=== PATIENT | female | born 1935 | race Caucasian/White ===

== ENCOUNTER 2024-06-01 12:18 | Emergency (ER) | payer MEDICARE, BC, SELFPAY ==
[2024-06-01 12:25] VITALS: BP 136/67
[2024-06-01] MEDS: TYLENOL 1000 MG PO (13:24)
[2024-06-01 13:27] VITALS: BMI 31.3
[2024-06-01 13:33] LABS: % Basophils 0.3 % (0-2); % Eosinophils 0.6 % (0-6); % Immature Granulocytes 0.3 % (0-0.5); % Lymphocytes 18.6 % (20.5-51.1); % Monocytes 11.5 % (1.7-9.3); % Neutrophils 68.7 % (42.2-75.2); Absolute Lymphocytes 1.3 10^3/uL (1.2-3.4); Absolute Monocytes 0.8 10^3/uL (0.1-0.6); Absolute Neutrophils 4.9 10^3/uL (1.4-6.5); Hemoglobin 12.3 g/dL (12.0-16.0); Mean Corp Hgb Conc. 35.1 g/dL (33.0-37.0); Mean Corpuscular Hgb 29.8 pg (27.0-31.0); Mean Corpuscular Volume 84.7 fL (81.0-99.0); Nucleated Red Blood Cells % 0 %; Platelet Count 206 10^3/uL (130-400); Red Blood Cell Count 4.13 10^6/uL (4.20-5.40); Red Cell Dist. Width 13.8 % (11.5-14.5); White Blood Cell Count 7.1 10^3/uL (4.8-10.8)
--- NOTE | 2024-06-01 13:37 | ED.GENMED ---
History of Present Illness
General
Chief Complaint: Fall
Source: patient and family
Time Seen by Provider: 06/01/24 12:49
History of Present Illness
History of Present Illness:
88-year-old female with past medical history of hypertension presenting to the emergency department for evaluation after she had an accidental fall yesterday around 2 PM stating she put her walker onto the carpet and stepped backwards which caused
her to fall into the TV stand injuring her left flank/lower back, right knee and also noting bruise to the left mid humerus patient reports that she has been able to walk since but has had pain to her right knee and notes that the knee will
occasionally give out. Patient denies any head injury, loss consciousness, vomiting, visual changes. She does not use any anticoagulant or antiplatelet medications. Did take some Tylenol due to the generalized soreness. Patient's main concern is
chemosis within the left back and flank area.
Past History
Past History
ED Past Medical History: HTN
ED Past Surgical History: Cholecystectomy
Social History
Tobacco: Non-smoker
Alcohol: None
Drug: None
Personal:
Living: with family
Family History
Family History: Other (No significant)
Review of Systems
Review of Systems
All Other Systems: ROS reviewed and negative except as documented in HPI and ROS
Phy Exam
Physical Exam
Physical Exam:
GENERAL: Alert , in no apparent distress
HEAD: NCAT
EYE: Clear conjunctiva, no periorbital ecchymosis
NECK: Supple, no midline tenderness
ENT: o/p clr, mmm.
CARDIAC: Regular rate and rhythm .
LUNGS: Clear breath sounds bilaterally, no acute respiratory distress, no wheezes/rales/rhonchi
ABDOMEN: Soft, without focal tenderness, no r/g, small area of ecchymosis to the left CVA
BACK: 2 larger areas of ecchymosis including the left parathoracic and left sacral region. The parathoracic region wraps around into the left CVA. Mild tenderness overlying this area
NEUROLOGICAL: Alert and oriented
SKIN: Warm and dry, skin intact. no abrasions/lacerations. contusion to left mid humerus
MUSCULOSKELETAL: No edema, well perfused.
PSYCH: Normal and appropriate interaction.
Scores
Heart Failure Risk
Heart Failure Risk Score: Not Applicable
Heart Score for Chest Pain Patients
STEMI patient?: Not applicable
Withdrawal Assessment of Alcohol
Withdrawal Assessment Completed?: Not applicable
Course
Orders/Labs/Results
Orders:
Orders
06/01/24 13:05
CT Chest/abd/pel W Iv Cont Urgent
Reason For Exam: fall, left sided ecchymosis in flank
06/01/24 13:13
Basic Metabolic Panel Urgent
Complete Blood Count/With Diff Urgent
06/01/24 13:23
Acetaminophen [Tylenol] 1,000 mg .ROUTE .STK-MED ONE
Acetaminophen [Tylenol] 1,000 mg PO NOW STA
06/01/24 13:43
CR Knee- Right 4 Or More View* Urgent
Comment:
Reason For Exam: fall, pain
Abnormal Lab Results
06/01/24
13:13
RBC 4.13 L 10^6/uL
(4.20-5.40)
Hct 35.0 L %
(37.0-47.0)
Absolute Monos (auto) 0.8 H 10^3/uL
(0.1-0.6)
Lymphocytes % 18.6 L %
(20.5-51.1)
Monocytes % 11.5 H %
(1.7-9.3)
Glucose 124 H mg/dl
(70-99)
06/01/24 13:13
06/01/24 13:13
Vital Signs
Initial and Last Documented VS:
Initial Vital Signs
Temp Pulse Resp BP Pulse Ox
98.3 F 63 16 136/67 98
06/01/24 12:25 06/01/24 12:25 06/01/24 12:25 06/01/24 12:25 06/01/24 12:25
Last Documented Vital Signs
Temp Pulse Resp BP Pulse Ox
98.1 F 78 18 126/74 97
06/01/24 15:51 06/01/24 15:51 06/01/24 15:51 06/01/24 15:51 06/01/24 15:51
MDM/Problems Addressed
Differential Diagnosis Includes:
accidental trip and fall, contusion, retroperitoneal hematoma, no concern for fracture
MDM/Problems Addressed:
88-year-old female presenting to the emergency department for evaluation after an accidental trip and fall yesterday. Patient's main area of concern is the bruising/contusion on the left part of her back/flank area. Also noting some mild right
knee and left humeral pain. Patient denies anticoagulants. Hemodynamically stable and in no acute distress. Based off patient's age combined with the physical exam findings will obtain CT scan of the chest abdomen and pelvis. X-ray of the right
knee. Tylenol ordered for pain.
*Radiology
Radiology exam reviewed: preliminary read by ED provider (degenerative changes of right knee. no fracture) and radiology read reviewed
*Pulse Oximetry
Patient hypoxic: no
*Critical Care Note
Total Time (30-74mins, 75-104mins- exclusive of procedures): Not Applicable
Patient Management
Escalation/DeEscalation of care consider admission/obs:
Patient CT scan is noted for mild contusions but no acute emergent pathologies within the chest abdomen or pelvis. Patient advised she can use Tylenol or NSAIDs as needed for pain. Keep ice over the areas that are more sore. Follow-up with
primary provider as needed.
ED Attending Note
-
Portions of this chart may have been created with voice recognition software.� Occasional wrong word or��sound alike� substitutions may have occurred due to the inherent limitations of voice recognition software.
Discharge Plan
Departure
Patient Disposition: Home (Routine Discharge)
Date of Disposition: 06/01/24
Time of Disposition: 15:47
Patient with high blood pressure during this ER visit?: No
Discharge Problem:
Accidental fall, Back contusion, Knee pain, right
Instructions: Contusion
Prescriptions:
No Action
ciprofloxacin HCl 500 MG tablet
500 mg PO Q12 Qty: 19 0RF
phenazopyridine 100 MG tablet
100 mg PO Q8 PRN (Reason: bladder pressure) Qty: 20 0RF
Referrals:
Cameron Avila MD [Family Provider] -
Interventions
Interventions:
*Risk Screen - Suicide Last Done: 06/01/24 12:25
*General Assessment Last Done: 06/01/24 12:25
*Neglect/Abuse Screening Last Done: 06/01/24 12:25
ED- Fall Risk Assessment Last Done: 06/01/24 15:52
*ED COVID-19 Vaccine History Last Done: 06/01/24 15:52
*Nursing Disposition Last Done: 06/01/24 15:52
ED-Musculoskeletal Assessment Last Done: 06/01/24 15:52
ED- Neurological Assessment Last Done: 06/01/24 15:52
ED-Skin Assessment Last Done: 06/01/24 15:53
Discharge Date and Time
Discharge Date/Time: 06/01/24 15:53
Print Language: BERMUDIAN
[2024-06-01 13:47] LABS: Blood Urea Nitrogen 15 mg/dl (7-17); Calcium 9.6 mg/dl (8.4-10.2); Carbon Dioxide 26 mmol/L (22-30); Chloride 104 mmol/L (98-107); Estimated Creatinine Clearance 50 ml/min; Glucose 124 mg/dl (70-99); Potassium 4.1 mmol/L (3.5-5.1); Sodium 139 mmol/L (135-145); eGFR > 60.00
[2024-06-01 15:51] VITALS: BP 126/74
== END 2024-06-01 15:53 | disposition home or self-care (01) ==
LOC: EMR 12:18
PROVIDERS: Physician Assistant Medical; EMERGENCY PHYSICIAN Emergency Medicine; FAMILY PHYSICIAN Family Medicine
DX: S20.221A Contusion of right back wall of thorax, initial encounter (principal); S30.1XXA Contusion of abdominal wall, initial encounter; S40.022A Contusion of left upper arm, initial encounter; M25.561 Pain in right knee; W01.198A Fall on same level from slipping, tripping and stumbling with subsequent striking against other object, initial encounter; I10 Essential (primary) hypertension; Z90.49 Acquired absence of other specified parts of digestive tract
CPT/HCPCS: 99285; 71260; 73564; 74177; 80048; 85025; Q9967

== ENCOUNTER 2024-06-22 13:54 | Emergency (ER) | payer MEDICARE, BC, SELFPAY ==
[2024-06-22 13:59] VITALS: BP 201/94
--- NOTE | 2024-06-22 14:22 | ED.CVA ---
History of Present Illness
General
Chief Complaint: CVA/TIA Symptoms
Source: patient and family
Time Seen by Provider: 06/22/24 14:03
Onset of Stroke Symptoms
Onset of symptoms known: No
Time pt last seen normal is known: No
History of Present Illness
History of Present Illness:
88yoF with a history of hypertension presenting with her daughter for evaluation of numbness. Patient reports intermittent paresthesias over the past several weeks. The paresthesias occur at different locations. Sometimes they occur at the right
index and middle fingers. She has also had episodes of paresthesias to her right lateral tongue and right upper lip. The symptoms are always transient. She was reaching for the remote this morning around 11 AM when she noticed that her right
index and middle fingers felt numb. She shook out her hand and the numbness resolved. Patient is currently asymptomatic. She has also been experiencing intermittent dizziness and tinnitus since October of this year. She describes the dizziness as
lightheadedness. She denies any vertiginous symptoms. She has been seen by ENT and her PCP for these symptoms. Her PCP has been adjusting her blood pressure medications recently. No headache, visual changes, weakness, chest pain, palpitations.
Past History
Past History
ED Past Medical History: HTN
ED Past Surgical History: Cholecystectomy
Social History
Tobacco: Non-smoker
Alcohol: None
Drug: None
Personal:
Living: with family
Family History
Family History: Other (No significant)
Phy Exam
General Physical Exam
General Presentation: well appearing and no apparent distress
General age: appears stated age
General Skin: warm and dry
General Habitus: normal
General Mental: alert
Cardiovascular Exam
Cardiovascular Exam: regular rate/rhythm
Pulmonary Exam
Pulmonary Exam: lungs clear, no respiratory distress, no crackles and no wheezing
Neurological Exam
Neurological Exam: alert, CN II-XII intact, no motor deficits, no sensory deficits and other (CN 2-12 intact. PERRL. EOMs intact. Negative drift x4. Sensation intact in all extremities. Normal finger to nose and heel to polanco bilaterally. )
Callie Coma Scale
Eye Opening: Spontaneous
Verbal Response: Oriented
Motor Response: Obeys Commands
GCS Total Score: 15
Skin Exam
Skin Exam: normal color and warm/dry
Psychiatric Exam
Psychiatric Exam: normal mood/affect
Scores
NIH Stroke Score
Level of Consciousness: 0 - Alert
LOC Questions: 0-Answers both correctly
LOC Commands: 0-Performs both correctly
Best Horizontal Gaze: 0-Normal
Visual Pride: 0=Normal, no visual loss
Facial Palsy: 0=Normal, symmetrical
Motor - Right Arm: 0=No drift 10 seconds
Motor - Left Arm: 0=No drift 10 seconds
Motor - Right Le-No drift 5 seconds
Motor - Left Le-No drift 5 seconds
Limb Ataxia: 0-Absent
Sensation: 0-Normal
Best Language: 0-No aphasia
Dysarthria: 0-Normal
Extinction and Inattention: 0-No abnormality
Total Score:: 0
Course
Orders/Labs/Results
Orders:
Orders
06/22/24 14:[address] [CT Head W/o Iv Contrast] Urgent
Comment:
Reason For Exam: unilateral numbness
06/22/24 14:21
Electrocardiogram (*1) Urgent
Reason for Study: Vertigo / Dizzy
Cardiac Monitoring- Treatment ONCE
EKG- Treatment ONCE
06/22/24 14:36
Complete Blood Count/With Diff Urgent
Comprehensive Metabolic Panel Urgent
Abnormal Lab Results
06/22/24
14:36
WBC 4.1 L 10^3/uL
(4.8-10.8)
RBC 4.15 L 10^6/uL
(4.20-5.40)
Hct 36.8 L %
(37.0-47.0)
Absolute Lymphs (auto) 1.1 L 10^3/uL
(1.2-3.4)
Monocytes % 9.8 H %
(1.7-9.3)
Glucose 105 H mg/dl
(70-99)
06/22/24 14:36
06/22/24 14:36
Vital Signs
Initial and Last Documented VS:
Initial Vital Signs
Temp Pulse Resp BP Pulse Ox
97.7 F 58 16 201/94 98
06/22/24 13:59 06/22/24 13:59 06/22/24 13:59 06/22/24 13:59 06/22/24 13:59
Last Documented Vital Signs
Temp Pulse Resp BP Pulse Ox
97.7 F 58 12 186/70 98
06/22/24 13:59 06/22/24 16:30 06/22/24 16:30 06/22/24 16:18 06/22/24 16:30
MDM/Problems Addressed
Differential Diagnosis Includes:
88yoF here with intermittent numbness x several weeks to R index/middle fingers and tongue. Last episode 11am this morning. Currently asymptomatic. She is hypertensive on arrival with otherwise normal vital signs. She is well appearing in no
distress. No sensory deficits on exam or other neuro deficits noted. Differential diagnosis includes but is not limited to: peripheral neuropathy, cervical radiculopathy, electrolyte abnormality, doubt CVA
Initial ED plan: Check CBC, CMP, EKG, and CT head.
*EKG
Interpreted by ED Provider?: Yes
EKG Intrepretation Date: 06/22/24
Heart Rate: 59
Rate: bradycardiac
Rhythm: sinus
[place]: normal axis
Interval: normal interval
QRS Pattern: normal QRS
Ischemia: other (Nonspecific T wave changes)
*Critical Care Note
Total Time (30-74mins, 75-104mins- exclusive of procedures): Not Applicable
Update Note
Update Note:
Labs unremarkable including normal electrolytes. CT head is negative for acute findings. No ischemic changes on EKG. Patient remains asymptomatic on reassessment. No indication for hospitalization at this time. Doubt acute CVA as symptoms have
resolved. The location is also atypical and she has no associated weakness with her symptoms. Patient's blood pressure elevated throughout ED stay. Her PCP has been changing her blood pressure medications recently as ENT thought her tinnitus may
be a side effect of her medications. No evidence of end organ dysfunction. She was advised to follow-up with her PCP as well as neurology. ED return precautions discussed. She was discharged in stable condition.
ED Attending Note
-
Portions of this chart may have been created with voice recognition software.� Occasional wrong word or��sound alike� substitutions may have occurred due to the inherent limitations of voice recognition software.
Discharge Plan
Departure
Patient Disposition: Home (Routine Discharge)
Date of Disposition: 06/22/24
Time of Disposition: 16:18
Patient with high blood pressure during this ER visit?: Yes
Discharge Problem:
Paresthesia
Instructions: Paresthesia (DC)
Prescriptions:
No Action
ciprofloxacin HCl 500 MG tablet
500 mg PO Q12 Qty: 19 0RF
phenazopyridine 100 MG tablet
100 mg PO Q8 PRN (Reason: bladder pressure) Qty: 20 0RF
Referrals:
Mathew Chavez MD [Active] -
Cameron Avila MD [Family Provider] -
Activity Restrictions/Additional Instructions:
Please follow-up with your family doctor and neurology. Return to the ER with any new or worsening symptoms.
Interventions
Interventions:
*Risk Screen - Suicide Last Done: 06/22/24 14:50
*General Assessment Last Done: 06/22/24 14:50
*Neglect/Abuse Screening Last Done: 06/22/24 14:50
ED- Fall Risk Assessment Last Done: 06/22/24 14:40
*ED COVID-19 Vaccine History Last Done: 06/22/24 14:50
*Nursing Disposition Last Done: 06/22/24 17:01
ED- Pulmonary Assessment Last Done: 06/22/24 14:40
ED- Neurological Assessment Last Done: 06/22/24 14:40
ED- Cardiac Assessment Last Done: 06/22/24 14:40
ED Swallowing Screen Last Done: 06/22/24 14:40
Discharge Date and Time
Discharge Date/Time: 06/22/24 17:01
Print Language: BHUTANESE
[2024-06-22 14:39] VITALS: BMI 31.1
[2024-06-22 14:42] VITALS: BP 187/84
[2024-06-22 14:52] LABS: % Basophils 0.5 % (0-2); % Eosinophils 1.2 % (0-6); % Monocytes 9.8 % (1.7-9.3); % Neutrophils 61.5 % (42.2-75.2); Absolute Eosinophils 0.1 10^3/uL (0-0.7); Absolute Lymphocytes 1.1 10^3/uL (1.2-3.4); Absolute Monocytes 0.4 10^3/uL (0.1-0.6); Absolute Neutrophils 2.5 10^3/uL (1.4-6.5); Hematocrit 36.8 % (37.0-47.0); Hemoglobin 12.5 g/dL (12.0-16.0); Mean Corpuscular Hgb 30.1 pg (27.0-31.0); Mean Corpuscular Volume 88.7 fL (81.0-99.0); Mean Platelet Volume 10.1 fL (7.4-10.4); Nucleated Red Blood Cells % 0 %; Platelet Count 187 10^3/uL (130-400); Red Blood Cell Count 4.15 10^6/uL (4.20-5.40); Red Cell Dist. Width 13.7 % (11.5-14.5); White Blood Cell Count 4.1 10^3/uL (4.8-10.8)
[2024-06-22 15:00] VITALS: BP 175/76
[2024-06-22 15:11] LABS: ALT (SGPT) 12 U/L (0-35); AST (SGOT) 23 U/L (14-36); Albumin 4.2 g/dl (3.5-5.0); Alkaline Phosphatase 80 U/L (38-126); Blood Urea Nitrogen 14 mg/dl (7-17); Calcium 9.8 mg/dl (8.4-10.2); Carbon Dioxide 25 mmol/L (22-30); Chloride 105 mmol/L (98-107); Estimated Creatinine Clearance 56 ml/min; Glucose 105 mg/dl (70-99); Potassium 4.1 mmol/L (3.5-5.1); Sodium 143 mmol/L (135-145); Total Bilirubin 1.2 mg/dl (0.2-1.3); Total Protein 6.5 g/dl (6.3-8.2); eGFR > 60.00
[2024-06-22 16:18] VITALS: BP 186/70
== END 2024-06-22 17:01 | disposition home or self-care (01) ==
LOC: EMR 13:54
PROVIDERS: Physician Assistant; EMERGENCY PHYSICIAN Student in an Organized Health Care Education/Training Program; FAMILY PHYSICIAN Family Medicine
DX: R20.2 Paresthesia of skin (principal); R20.0 Anesthesia of skin; R42 Dizziness and giddiness; I10 Essential (primary) hypertension; Z90.49 Acquired absence of other specified parts of digestive tract
CPT/HCPCS: 99284; 70450; 80053; 85025; 93005